=== PATIENT | male | born 1960 | race Caucasian/White ===

== ENCOUNTER → 2018-05-01 08:40 | Outpatient (CLI) | payer OTHER, MEDICAID, SELFPAY ==
[2018-05-01 09:18] LABS: Add Manual Diff / Slide Review NO; Basophils Percent Auto 0.8 % (0-2); Hematocrit 43.8 % (41-53); Hemoglobin 14.5 g/dL (13.5-17.5); Lymphocytes Percent Auto 25.1 % (25-40); Mean Corpuscular HGB Conc 33.2 % (30-36); Mean Corpuscular Hemoglobin 26.9 PG (26-34); Monocytes Percent Auto 5.3 % (3-14); Neutrophils Absolute Auto 6400 /uL (3000-5900); Neutrophils Percent Auto 66.8 % (50-75); Platelet Count 209 X10^3/uL (150-400); Red Cell Distribution Width 14.8 % (11.6-14.8); White Blood Cell Count 9.5 X10^3/uL (4.5-11.0)
[2018-05-01 09:30] LABS: Alanine Aminotransferase 28 IU/L (21-72); Albumin 4.3 g/dL (3.5-5.0); Albumin Globulin Ratio 1.3 (1.0-2.8); Alkaline Phosphatase 99 U/L (38-126); Aspartate Aminotransferase 28 IU/L (17-59); Bilirubin Total 0.6 mg/dL (0.2-1.3); Blood Urea Nitrogen 18 mg/dL (9-20); Calcium 8.9 mg/dL (8.4-10.2); Carbon Dioxide 27 mmol/L (22-32); Chloride 102 mmol/L (98-107); Cholesterol 189 mg/dL (140-199); Estimated Glomerular Filt Rate > 60.0 mL/min (>60); Globulin 3.4 g/dL (1.7-4.1); Glucose 113 mg/dL (70-100); HDL Cholesterol 40 mg/dL (40-60); HEMOLYSIS 38 (0-50); Hemoglobin A1C% w Est Avg Glu 6.4 % (4.0-6.0); Magnesium 1.9 mg/dL (1.6-2.3); Sodium 141 mmol/L (137-145); Total Protein 7.7 g/dL (6.3-8.2); Triglycerides 406 mg/dL (35-150)
== END ==
PROVIDERS: Family Provider Nurse Practitioner; PCP Nurse Practitioner Family; Visit Provider Nurse Practitioner Family
DX: E66.01 Morbid (severe) obesity due to excess calories (principal); E11.9 Type 2 diabetes mellitus without complications; I10 Essential (primary) hypertension; E11.40 Type 2 diabetes mellitus with diabetic neuropathy, unspecified
CPT/HCPCS: 36415; 80053; 80061; 82306; 83036; 83735; 85025

== ENCOUNTER → 2018-07-19 15:55 | Outpatient (CLI) | payer OTHER, MEDICAID, SELFPAY ==
--- NOTE | 2018-07-19 15:58 | DI.RAD.S_ITS ---
PROCEDURE: XR KNEE LT 3V INDICATIONS: LEFT KNEE PAIN TECHNIQUE: 3 views of the knee were acquired. COMPARISON: None. FINDINGS: Bones: No fractures or dislocations. No suspicious bony lesions. Severe narrowing of the lateral femoral tibial joint and there is tricompartmental periarticular osteophyte formation. 2 rounded lucencies involve the proximal tibial metaphysis suggestive of degenerative bone cyst. Soft tissues: Moderate joint effusion. No suspicious soft tissue calcifications. IMPRESSION: 1. Severe lateral femoral tibial joint degeneration. Dictated by: Dimitrios Biggs [facility] Interpreted: Poli Rodriguez MD on 07/19/2018 at 16:21 Approved by: Poli Rodriguez M.D. on 07/19/2018 at 16:32
== END ==
PROVIDERS: Family Provider Nurse Practitioner; PCP Nurse Practitioner Family; Visit Provider Nurse Practitioner Family
DX: M17.12 Unilateral primary osteoarthritis, left knee (principal); M25.562 Pain in left knee
CPT/HCPCS: 73562

== ENCOUNTER → 2018-10-21 14:01 | Outpatient (CLI) | payer OTHER, MEDICAID, SELFPAY | PROVIDERS: PCP Nurse Practitioner Family; Visit Provider Registered Nurse | DX: L03.90 Cellulitis, unspecified (principal) | CPT/HCPCS: 87070; 87075; 87077; 87147; 87186; 87205 ==

== ENCOUNTER → 2018-10-26 09:59 | Outpatient (CLI) | payer OTHER, MEDICAID, SELFPAY ==
[2018-10-26 11:28] LABS: Blood Urea Nitrogen 18 mg/dL (9-20); Calcium 9.4 mg/dL (8.4-10.2); Carbon Dioxide 27 mmol/L (22-32); Chloride 103 mmol/L (98-107); Cholesterol 169 mg/dL (140-199); Estimated Glomerular Filt Rate > 60.0 mL/min (>60); Glucose 125 mg/dL (70-100); HDL Cholesterol 29 mg/dL (40-60); HEMOLYSIS < 15 (0-50); LDL Cholesterol Calculated 80 mg/dL (<100); Sodium 141 mmol/L (137-145); Triglycerides 299 mg/dL (35-150)
[2018-10-26 11:45] LABS: Creatinine Urine Random 73.5 mg/dL
[2018-10-26 12:04] LABS: Vitamin D 25 Hydroxy (D3) 40.1 ng/mL (30.0-100.0)
[2018-10-26 12:18] LABS: Hemoglobin A1C% w Est Avg Glu 7.2 % (4.0-6.0)
[2018-10-26 12:40] LABS: Microalbumi Creatinin Ratio Ur 31.2 ug/mg CR (<30); Microalbumin Urine Random 2.3 mg/dL (0-1.6)
== END ==
PROVIDERS: PCP Student in an Organized Health Care Education/Training Program; Visit Provider Student in an Organized Health Care Education/Training Program
DX: E11.9 Type 2 diabetes mellitus without complications (principal); E78.1 Pure hyperglyceridemia; E55.9 Vitamin D deficiency, unspecified
CPT/HCPCS: 36415; 80048; 80061; 82043; 82306; 82570; 83036

== ENCOUNTER → 2019-02-20 08:52 | Outpatient (CLI) | payer OTHER, MEDICAID, SELFPAY ==
[2019-02-20 10:12] LABS: Hemoglobin A1C% w Est Avg Glu 6.2 % (4.0-6.0)
[2019-02-20 10:18] LABS: BUN Creatinine Ratio 28.3 (6-22); Blood Urea Nitrogen 17 mg/dL (9-20); Calcium 9.5 mg/dL (8.4-10.2); Carbon Dioxide 26 mmol/L (22-32); Chloride 100 mmol/L (98-107); Estimated Glomerular Filt Rate > 60.0 mL/min (>60); Glucose 121 mg/dL (70-100); HEMOLYSIS < 15 (0-50); Potassium 4.1 mmol/L (3.4-5.1); Sodium 138 mmol/L (137-145); Triglycerides 158 mg/dL (35-150)
[2019-02-20 10:49] LABS: Creatinine Urine Random 66.1 mg/dL
[2019-02-20 10:54] LABS: Microalbumi Creatinin Ratio Ur 63.5 ug/mg CR (<30); Microalbumin Urine Random 4.2 mg/dL (0-1.6)
== END ==
PROVIDERS: PCP Student in an Organized Health Care Education/Training Program; Visit Provider Student in an Organized Health Care Education/Training Program
DX: E11.40 Type 2 diabetes mellitus with diabetic neuropathy, unspecified (principal); E78.1 Pure hyperglyceridemia
CPT/HCPCS: 36415; 80048; 82043; 82570; 83036; 84478

== ENCOUNTER → 2019-02-21 10:52 | Outpatient (CLI) | payer OTHER, MEDICAID, SELFPAY ==
--- NOTE | 2019-02-21 10:54 | DI.RAD.S_ITS ---
PROCEDURE: XR CHEST 2V INDICATIONS: Cough TECHNIQUE: 2 views of the chest were acquired. COMPARISON: [facility], CHEST 2 VIEW, 11/17/2009, 11:42. [facility], CHEST 2 VIEW, 12/17/2009, 15:56. [facility], CHEST 2 VIEW, 12/30/2009, 11:37 previously present. . [facility], CHEST FOR PICC PLACEMENT, 07/12/2016, 10:28. [facility], CHEST 1 VIEW, 07/05/2016, 16:14. FINDINGS: Surgical changes and devices: None. Lungs and pleura: Lungs are unchanged with a chronic mild interstitial prominence. No pleural effusions or pneumothorax. Mediastinum: Mediastinal contours are normal. Heart size is normal. Bones and chest wall: No suspicious bony abnormalities. Soft tissues appear unremarkable. IMPRESSION: Chronic mild interstitial prominence, stable over time, source of new cough is not seen. No focal consolidative pneumonia is found. Dictated by: Robin Cooper M.D. on 02/21/2019 at 11:35 Approved by: Robin Cooper M.D. on 02/21/2019 at 11:36
== END ==
PROVIDERS: PCP Student in an Organized Health Care Education/Training Program; Visit Provider Registered Nurse
DX: R05 Cough (principal)
CPT/HCPCS: 71046

== ENCOUNTER → 2019-04-18 09:48 | Outpatient (CLI) | payer OTHER, MEDICAID, SELFPAY | PROVIDERS: PCP Student in an Organized Health Care Education/Training Program; Visit Provider Nurse Practitioner | DX: T14.8XXA Other injury of unspecified body region, initial encounter (principal) | CPT/HCPCS: 87070; 87077; 87205 ==

== ENCOUNTER → 2019-06-09 08:37 | Outpatient (CLI) | payer OTHER, MEDICAID, SELFPAY ==
[2019-06-09 09:40] LABS: Hemoglobin A1C% w Est Avg Glu 6.4 % (4.0-6.0)
== END ==
PROVIDERS: PCP Student in an Organized Health Care Education/Training Program; Visit Provider Student in an Organized Health Care Education/Training Program
DX: E11.40 Type 2 diabetes mellitus with diabetic neuropathy, unspecified (principal)
CPT/HCPCS: 36415; 83036

== ENCOUNTER → 2020-01-09 16:37 | Outpatient (CLI) | payer OTHER, MEDICAID, SELFPAY ==
--- NOTE | 2020-01-09 16:39 | DI.RAD.S_ITS ---
PROCEDURE: XR CHEST 2V INDICATIONS: cough TECHNIQUE: 2 views of the chest were acquired. COMPARISON: [facility], CR, XR CHEST 2V, 02/21/2019, 10:55. [facility], CR, CHEST FOR PICC PLACEMENT, 07/12/2016, 10:28. FINDINGS: Surgical changes and devices: None. Lungs and pleura: Lungs are abnormal with a mild edema pattern, chronic. No pleural effusions or pneumothorax. Mediastinum: Mediastinal contours are normal. Heart size is globally enlarged, to a mild degree. Bones and chest wall: No suspicious bony abnormalities. Soft tissues appear unremarkable. IMPRESSION: Mild CHF pattern, likely with a small degree of CHF exacerbation but no pneumonia found and no pleural effusion identified. Dictated by: Robin Cooper M.D. on 01/09/2020 at 17:15 Approved by: Robin Cooper M.D. on 01/09/2020 at 17:16
== END ==
PROVIDERS: PCP Student in an Organized Health Care Education/Training Program; Referring Provider Student in an Organized Health Care Education/Training Program; Visit Provider Student in an Organized Health Care Education/Training Program
DX: J40 Bronchitis, not specified as acute or chronic (principal); R05 Cough; I50.9 Heart failure, unspecified
CPT/HCPCS: 71046

== ENCOUNTER → 2020-01-21 09:23 | Outpatient (CLI) | payer OTHER, MEDICAID, SELFPAY ==
[2020-01-21 10:17] LABS: Hemoglobin A1C% w Est Avg Glu 7.7 % (4.0-6.0)
[2020-01-21 10:45] LABS: BUN Creatinine Ratio 28.3 (6-22); Blood Urea Nitrogen 17 mg/dL (9-20); Calcium 9.9 mg/dL (8.4-10.2); Carbon Dioxide 29 mmol/L (22-32); Chloride 100 mmol/L (98-107); Estimated Glomerular Filt Rate > 60.0 mL/min (>60); Glucose 212 mg/dL (70-100); HEMOLYSIS < 15 (0-50); Potassium 3.7 mmol/L (3.4-5.1); Sodium 138 mmol/L (137-145)
[2020-01-21 10:56] LABS: Creatinine Urine Random 18.9 mg/dL
[2020-01-21 10:58] LABS: Microalbumin Urine Random 0.7 mg/dL (0-1.6)
[2020-01-21 11:12] LABS: Prostate Specific Antigen Scrn 2.21 ng/mL (0.1-4.0)
== END ==
PROVIDERS: PCP Student in an Organized Health Care Education/Training Program; Referring Provider Student in an Organized Health Care Education/Training Program; Visit Provider Student in an Organized Health Care Education/Training Program
DX: Z12.5 Encounter for screening for malignant neoplasm of prostate (principal); E11.40 Type 2 diabetes mellitus with diabetic neuropathy, unspecified; E66.01 Morbid (severe) obesity due to excess calories; I10 Essential (primary) hypertension
CPT/HCPCS: 36415; 80048; 82043; 82570; 83036; G0103

== ENCOUNTER → 2020-05-14 11:50 | Outpatient (CLI) | payer OTHER, MEDICAID, SELFPAY ==
[2020-05-14 13:08] LABS: Hemoglobin A1C% w Est Avg Glu 7.7 % (4.0-6.0)
== END ==
PROVIDERS: PCP Student in an Organized Health Care Education/Training Program; Referring Provider Student in an Organized Health Care Education/Training Program; Visit Provider Student in an Organized Health Care Education/Training Program
DX: E11.40 Type 2 diabetes mellitus with diabetic neuropathy, unspecified (principal)
CPT/HCPCS: 36415; 83036

== ENCOUNTER → 2020-08-09 09:42 | Outpatient (CLI) | payer OTHER, MEDICAID, SELFPAY ==
[2020-08-09 10:44] LABS: BUN Creatinine Ratio 28.3 (6-22); Blood Urea Nitrogen 17 mg/dL (9-20); Estimated Glomerular Filt Rate > 60.0 mL/min (>60)
[2020-08-09 10:48] LABS: Hemoglobin A1C% w Est Avg Glu 6.6 % (4.0-6.0)
== END ==
PROVIDERS: PCP Student in an Organized Health Care Education/Training Program; Referring Provider Student in an Organized Health Care Education/Training Program; Visit Provider Student in an Organized Health Care Education/Training Program
DX: E11.29 Type 2 diabetes mellitus with other diabetic kidney complication (principal); E11.40 Type 2 diabetes mellitus with diabetic neuropathy, unspecified; R80.9 Proteinuria, unspecified
CPT/HCPCS: 36415; 82565; 83036; 84520

== ENCOUNTER → 2020-11-25 13:11 | Outpatient (CLI) | payer OTHER, MEDICAID, SELFPAY ==
[2020-11-25 14:45] LABS: Creatinine Urine Random 82.6 mg/dL
[2020-11-25 15:48] LABS: Microalbumi Creatinin Ratio Ur 1766.3 ug/mg CR (<30); Microalbumin Urine Random 145.9 mg/dL (0-1.6)
[2020-11-25 15:50] LABS: Hemoglobin A1C% w Est Avg Glu 6.6 % (4.0-6.0)
[2020-11-25 16:01] LABS: BUN Creatinine Ratio 28.8 (6-22); Blood Urea Nitrogen 19 mg/dL (9-20); Calcium 9.8 mg/dL (8.4-10.2); Carbon Dioxide 30 mmol/L (22-32); Chloride 102 mmol/L (98-107); Estimated Glomerular Filt Rate > 60.0 mL/min (>60); Glucose 104 mg/dL (70-100); HEMOLYSIS 17 (0-50); Potassium 3.9 mmol/L (3.4-5.1); Sodium 140 mmol/L (137-145)
[2020-11-25 16:30] LABS: Prostate Specific Antigen Scrn 2.95 ng/mL (0.1-4.0)
== END ==
PROVIDERS: PCP Student in an Organized Health Care Education/Training Program; Referring Provider Student in an Organized Health Care Education/Training Program; Visit Provider Student in an Organized Health Care Education/Training Program
DX: E11.29 Type 2 diabetes mellitus with other diabetic kidney complication (principal); E11.40 Type 2 diabetes mellitus with diabetic neuropathy, unspecified; I10 Essential (primary) hypertension; R80.9 Proteinuria, unspecified; Z12.5 Encounter for screening for malignant neoplasm of prostate
CPT/HCPCS: 36415; 80048; 82043; 82570; 83036; G0103

== ENCOUNTER → 2021-02-10 15:06 | Outpatient (CLI) | payer OTHER, MEDICAID, SELFPAY ==
--- NOTE | 2021-02-10 15:08 | DI.RAD.S_ITS ---
PROCEDURE: XR KNEE LT 3V INDICATIONS: Re-assess ongoing knee pain TECHNIQUE: 3 views of the knee were acquired. COMPARISON: , CR, XR KNEE LT 3V, 07/19/2018, 15:34. FINDINGS: Bones: No fractures or dislocations but again noted is severe lateral compartment degenerative osteoarthritic joint space narrowing with [id number] articulation, and with subchondral cyst formation above and below the joint space better seen inferiorly. Lateral facet osteoarthritis is noted at the patellofemoral joint, moderate in severity.. No suspicious bony lesions. Soft tissues: No joint effusion. No suspicious soft tissue calcifications. IMPRESSION: [id number] severe lateral compartment knee joint osteoarthritis, moderate lateral facet patellofemoral joint osteoarthritic change also. No acute trauma. Subchondral cyst formation is noted, previously present. Dictated by: Robin Cooper M.D. on 02/10/2021 at 16:21 Approved by: Robin Cooper M.D. on 02/10/2021 at 16:23
== END ==
PROVIDERS: PCP Student in an Organized Health Care Education/Training Program; Referring Provider Student in an Organized Health Care Education/Training Program; Visit Provider Student in an Organized Health Care Education/Training Program
DX: M17.12 Unilateral primary osteoarthritis, left knee (principal); G89.29 Other chronic pain
CPT/HCPCS: 73562

== ENCOUNTER → 2021-06-07 16:26 | Outpatient (CLI) | payer OTHER, MEDICAID, SELFPAY ==
[2021-06-07 18:29] LABS: BUN Creatinine Ratio 33.8 (6-22); Blood Urea Nitrogen 22 mg/dL (9-20); Estimated Glomerular Filt Rate > 60.0 mL/min (>60)
[2021-06-07 18:32] LABS: Hemoglobin A1C% w Est Avg Glu 6.2 % (4.0-6.0)
[2021-06-07 19:08] LABS: Creatinine Urine Random 129.8 mg/dL
[2021-06-07 19:10] LABS: Microalbumi Creatinin Ratio Ur 28.5 ug/mg CR (<30); Microalbumin Urine Random 3.7 mg/dL (0-1.6)
== END ==
PROVIDERS: PCP Student in an Organized Health Care Education/Training Program; Referring Provider Student in an Organized Health Care Education/Training Program; Visit Provider Student in an Organized Health Care Education/Training Program
DX: E11.29 Type 2 diabetes mellitus with other diabetic kidney complication (principal); E11.40 Type 2 diabetes mellitus with diabetic neuropathy, unspecified; R80.9 Proteinuria, unspecified
CPT/HCPCS: 36415; 82043; 82565; 82570; 83036; 84520

== ENCOUNTER → 2021-07-13 13:38 | Outpatient (CLI) | payer OTHER, MEDICAID, SELFPAY ==
[2021-07-13 15:09] LABS: BUN Creatinine Ratio 39.8 (6-22); Blood Urea Nitrogen 33 mg/dL (9-20); Carbon Dioxide 25 mmol/L (22-32); Chloride 105 mmol/L (98-107); Estimated Glomerular Filt Rate > 60.0 mL/min (>60); Glucose 107 mg/dL (80-110); HEMOLYSIS < 15 (0-50); Potassium 4.6 mmol/L (3.4-5.1); Sodium 141 mmol/L (137-145)
[2021-07-13 18:28] LABS: Hemoglobin A1C% w Est Avg Glu 6.2 % (4.0-6.0)
== END ==
PROVIDERS: PCP Student in an Organized Health Care Education/Training Program; Referring Provider Student in an Organized Health Care Education/Training Program; Visit Provider Student in an Organized Health Care Education/Training Program
DX: I10 Essential (primary) hypertension (principal); Z79.899 Other long term (current) drug therapy; E11.40 Type 2 diabetes mellitus with diabetic neuropathy, unspecified
CPT/HCPCS: 36415; 80048; 83036

== ENCOUNTER → 2021-07-20 16:18 | Outpatient (CLI) | payer OTHER, MEDICAID, SELFPAY ==
[2021-07-20 18:24] LABS: Hemoglobin A1C% w Est Avg Glu 6.3 % (4.0-6.0)
[2021-07-20 18:36] LABS: Blood Urea Nitrogen 32 mg/dL (9-20)
[2021-07-20 18:41] LABS: BUN Creatinine Ratio 31.4 (6-22); Estimated Glomerular Filt Rate > 60.0 mL/min (>60)
[2021-07-20 19:05] LABS: Rubella Antibody IgG > 350.0 IU/mL (>15)
[2021-07-21 09:34] LABS: Hepatitis B Surf Ab Qualitativ Non Reactive (.); Mumps Virus IgG Antibody 83.2 AU/mL (Immune >10.9); Rubeola Measles IgG 75.9 AU/mL (Immune >16.4); Varicella IgG Antibody >4000 index (Immune >165)
== END ==
PROVIDERS: PCP Student in an Organized Health Care Education/Training Program; Referring Provider Student in an Organized Health Care Education/Training Program; Visit Provider Student in an Organized Health Care Education/Training Program
DX: E11.29 Type 2 diabetes mellitus with other diabetic kidney complication (principal); R80.9 Proteinuria, unspecified; E11.40 Type 2 diabetes mellitus with diabetic neuropathy, unspecified; Z02.1 Encounter for pre-employment examination
CPT/HCPCS: 82565; 83036; 84520; 86706; 86735; 86762; 86765; 86787

== ENCOUNTER → 2021-08-22 14:55 | Outpatient (CLI) | payer OTHER, MEDICAID, SELFPAY ==
[2021-08-22 16:16] LABS: BUN Creatinine Ratio 35.5 (6-22); Blood Urea Nitrogen 27 mg/dL (9-20); Estimated Glomerular Filt Rate > 60.0 mL/min (>60)
== END ==
PROVIDERS: PCP Student in an Organized Health Care Education/Training Program; Referring Provider Student in an Organized Health Care Education/Training Program; Visit Provider Student in an Organized Health Care Education/Training Program
DX: E11.40 Type 2 diabetes mellitus with diabetic neuropathy, unspecified (principal); I10 Essential (primary) hypertension
CPT/HCPCS: 36415; 82565; 83036; 84520

== ENCOUNTER → 2021-08-24 15:04 | Outpatient (CLI) | payer OTHER, MEDICAID, SELFPAY ==
--- NOTE | 2021-08-24 15:05 | DI.CT.S_ITS ---
PROCEDURE: CT ANGIO ABDOMEN INDICATIONS: Resistant hypertension TECHNIQUE: After the administration of intravenous contrast, 2.5 mm thick sections acquired from the diaphragm to the symphysis. 10 mm maximum-intensity projection (MIP) reformats were then acquired. For radiation dose reduction, the following was used: automated exposure control. COMPARISON: None. FINDINGS: Image quality: Study is limited by bolus timing and body habitus. Aorta: Appropriate in size and contour. No evidence of aortic aneurysm or dissection. Moderate atherosclerotic vascular calcification noted. Both renal arteries are widely patent Mesenteric arteries: Celiac trunk, superior and inferior mesenteric arteries appear patent. Right pelvic arteries: Unremarkable. Left pelvic arteries: Unremarkable Extravascular soft tissues: Lung bases are clear. Heart size is normal. Liver is normal in size and enhancement. Gallbladder not visualized, possibly resected . Biliary system is non dilated. Pancreas enhances normally. Spleen is normal in size and enhancement. No adrenal nodules. Kidneys are normal in size and enhancement, without hydronephrosis. Bilateral renal cysts measure up to 6.5 x 5.2 cm on the right and 7.3 x 5.3 cm on the left. There are 2 nodules associated with the left adrenal gland containing calcification. Largest nodule measures 2.3 x 1.8 cm Non opacified bowel loops are normal in wall thickness and caliber. No free fluid or air. No retroperitoneal or mesenteric adenopathy. No ventral hernias. No suspicious bony lesions. No vertebral body compression fractures. IMPRESSION: 1. Atherosclerotic aorta without evidence of aneurysm or dissection. No evidence of renal artery stenosis. 2. Nodular left adrenal gland contains calcification. Consider dedicated follow-up adrenal protocol CT or MR. 3. Bilateral renal cysts without hydronephrosis. Approved by: Ronnie Drew M.D. on 08/24/2021 at 17:05
== END ==
PROVIDERS: PCP Student in an Organized Health Care Education/Training Program; Referring Provider Student in an Organized Health Care Education/Training Program; Visit Provider Student in an Organized Health Care Education/Training Program
DX: N20.0 Calculus of kidney (principal); I10 Essential (primary) hypertension
CPT/HCPCS: 74175

== ENCOUNTER → 2022-03-14 15:46 | Outpatient (CLI) | payer OTHER, MEDICAID, SELFPAY ==
[2022-03-14 16:34] LABS: Hemoglobin A1C% w Est Avg Glu 7.1 % (4.0-6.0)
[2022-03-14 17:02] LABS: BUN Creatinine Ratio 27.9 (6-22); Blood Urea Nitrogen 19 mg/dL (9-20); Calcium 9.3 mg/dL (8.4-10.2); Carbon Dioxide 28 mmol/L (22-32); Chloride 104 mmol/L (98-107); Cholesterol 148 mg/dL (140-199); Estimated Glomerular Filt Rate > 60 mL/min (>60); Glucose 106 mg/dL (80-110); HDL Cholesterol 40 mg/dL (40-60); HEMOLYSIS < 15 (0-50); LDL Cholesterol Calculated 64 mg/dL (<100); Potassium 3.8 mmol/L (3.4-5.1); Sodium 140 mmol/L (137-145); Triglycerides 219 mg/dL (35-150)
[2022-03-14 17:33] LABS: Prostate Specific Antigen Scrn 3.48 ng/mL (0.1-4.0)
[2022-03-14 19:03] LABS: Creatinine Urine Random 64.7 mg/dL; Microalbumi Creatinin Ratio Ur 200.9 ug/mg CR (<30)
== END ==
PROVIDERS: PCP Student in an Organized Health Care Education/Training Program; Referring Provider Student in an Organized Health Care Education/Training Program; Visit Provider Student in an Organized Health Care Education/Training Program
DX: E11.29 Type 2 diabetes mellitus with other diabetic kidney complication (principal); E11.40 Type 2 diabetes mellitus with diabetic neuropathy, unspecified; E78.1 Pure hyperglyceridemia; I10 Essential (primary) hypertension; R80.9 Proteinuria, unspecified; Z12.5 Encounter for screening for malignant neoplasm of prostate
CPT/HCPCS: 36415; 80048; 80061; 82043; 82570; 83036; G0103

== ENCOUNTER → 2022-09-11 16:12 | Outpatient (CLI) | payer OTHER, MEDICAID, SELFPAY ==
[2022-09-11 17:20] LABS: Hemoglobin A1C% w Est Avg Glu 7.1 % (4.0-6.0)
[2022-09-11 17:23] LABS: BUN Creatinine Ratio 32.4 (6-22); Blood Urea Nitrogen 23 mg/dL (9-20); Estimated Glomerular Filt Rate > 60 mL/min (>60)
[2022-09-11 17:45] LABS: Creatinine Urine Random 86.2 mg/dL
[2022-09-11 17:48] LABS: Microalbumi Creatinin Ratio Ur 104.4 ug/mg CR (<30)
== END ==
PROVIDERS: PCP Student in an Organized Health Care Education/Training Program; Referring Provider Student in an Organized Health Care Education/Training Program; Visit Provider Student in an Organized Health Care Education/Training Program
DX: E11.29 Type 2 diabetes mellitus with other diabetic kidney complication (principal); E11.40 Type 2 diabetes mellitus with diabetic neuropathy, unspecified; I10 Essential (primary) hypertension; R80.9 Proteinuria, unspecified
CPT/HCPCS: 36415; 82043; 82565; 82570; 83036; 84520

== ENCOUNTER → 2022-10-11 08:43 | Outpatient (CLI) | payer OTHER, MEDICAID, SELFPAY ==
--- NOTE | 2022-10-11 09:07 | DI.RAD.S_ITS ---
PROCEDURE: XR CHEST 2V INDICATIONS: Cough TECHNIQUE: 2 views of the chest were acquired. COMPARISON: [facility], CR, XR CHEST 2V, 02/21/2019, 10:55. [facility], CR, XR CHEST 2V, 01/09/2020, 16:36. FINDINGS: Surgical changes and devices: None. Lungs and pleura: The lungs are hyperexpanded, with flattening of the hemidiaphragms seen. Generalized interstitial prominence can be seen. No pleural effusions or pneumothorax. Mediastinum: Mediastinal contours are normal. Heart size is normal. Bones and chest wall: No suspicious bony abnormalities. Age-appropriate bony degenerative changes are seen. Soft tissues appear unremarkable. IMPRESSION: Generalized interstitial prominence is seen, which is similar to the prior study. Please consider mild pulmonary edema, although the heart size is no appears normal. Differential diagnosis includes atypical infiltrate or baseline parenchymal coarsening. Dictated by: Devendra Agrawal M.D. on 10/11/2022 at 8:49 Approved by: Devendra Agrawal M.D. on 10/11/2022 at 8:50
[2022-10-11 09:32] LABS: Influenza A - CEPHEID Flu A NEGATIVE (NEGATIVE); Influenza B - CEPHEID Flu B NEGATIVE (NEGATIVE); Respiratory Syncytial Virus Negative (Negative)
[2022-10-11 09:47] LABS: COVID-19 CEPHEID 4-PLEX PCR Negative (Negative)
== END ==
PROVIDERS: PCP Student in an Organized Health Care Education/Training Program; Referring Provider Nurse Practitioner Family; Visit Provider Nurse Practitioner Family
DX: R05.9 Cough, unspecified (principal)
CPT/HCPCS: 0241U; 71046

== ENCOUNTER → 2023-03-13 16:06 | Outpatient (CLI) | payer OTHER, MEDICAID, SELFPAY ==
[2023-03-13 17:45] LABS: Alanine Aminotransferase 36 IU/L (<50); Bilirubin Total 0.5 mg/dL (0.2-1.3); Estimated Glomerular Filt Rate > 60 mL/min (>60)
[2023-03-13 18:00] LABS: Creatinine Urine Random 104.9 mg/dL
[2023-03-13 18:05] LABS: Microalbumi Creatinin Ratio Ur 106.7 ug/mg CR (<30); Microalbumin Urine Random 11.2 mg/dL (0-1.6)
[2023-03-13 21:01] LABS: Albumin 4.6 g/dL (3.5-5.0); Albumin Globulin Ratio 1.5 (1.0-2.8); Alkaline Phosphatase 96 U/L (38-126); Aspartate Aminotransferase 43 IU/L (17-59); BUN Creatinine Ratio 32.9 (6-22); Blood Urea Nitrogen 26 mg/dL (9-20); Calcium 9.6 mg/dL (8.4-10.2); Carbon Dioxide 22 mmol/L (22-32); Chloride 105 mmol/L (98-107); Glucose 135 mg/dL (80-110); Potassium 4.4 mmol/L (3.4-5.1); Sodium 139 mmol/L (137-145); Total Protein 7.6 g/dL (6.3-8.2); Triglycerides 396 mg/dL (35-150)
[2023-03-13 21:39] LABS: HEMOLYSIS 61 (0-50)
[2023-03-15 00:19] LABS: Labcorp Hemoglobin (Hb) A1c 7.7 % (4.8-5.6)
== END ==
PROVIDERS: PCP Student in an Organized Health Care Education/Training Program; Referring Provider Student in an Organized Health Care Education/Training Program; Visit Provider Student in an Organized Health Care Education/Training Program
DX: I10 Essential (primary) hypertension (principal); E11.29 Type 2 diabetes mellitus with other diabetic kidney complication; R80.9 Proteinuria, unspecified; E78.1 Pure hyperglyceridemia; E11.40 Type 2 diabetes mellitus with diabetic neuropathy, unspecified
CPT/HCPCS: 36415; 80053; 82043; 82570; 83036; 84478

== ENCOUNTER → 2023-03-21 15:07 | Outpatient (CLI) | payer OTHER, MEDICAID, SELFPAY ==
--- NOTE | 2023-03-21 | DI.RAD.S_ITS ---
PROCEDURE: XR LUMBAR SPINE 2-3V INDICATIONS: Segmental and somatic dysfunction of lumbar region, pain TECHNIQUE: 3 views of the lumbar spine were acquired. COMPARISON: None. FINDINGS: Bones: 5 [id number] vertebrae are present. There is loss of normal lumbar lordosis. 4 mm of anterolisthesis of L4 on L5. Multilevel disc space narrowing and endplate osteophyte formation, as well as facet hypertrophy, predominantly within the mid and lower lumbar spine. No vertebral body compression fractures. No suspicious bony lesions. Soft tissues: Overlying bowel gas pattern is normal. No suspicious soft tissue calcifications. IMPRESSION: Multilevel degenerative disc and facet disease. No acute fracture. No osseous lesion. If symptoms and/or clinical suspicion for pathology persist, further assessment with repeat, or advanced imaging (e.g., CT, MRI, or bone scan) may be helpful for further assessment. Dictated by: Jose Garcia M.D. on 03/21/2023 at 16:33 Transcribed by: JONATHAN on 03/21/2023 at 16:34 Approved by: Jose Garcai M.D. on 03/21/2023 at 16:50
== END ==
PROVIDERS: PCP Student in an Organized Health Care Education/Training Program; Referring Provider Chiropractor Independent Medical Examiner; Visit Provider Chiropractor Independent Medical Examiner
DX: M51.36 Other intervertebral disc degeneration, lumbar region (principal); M47.896 Other spondylosis, lumbar region; M99.03 Segmental and somatic dysfunction of lumbar region; M54.59 Other low back pain
CPT/HCPCS: 72100

== ENCOUNTER → 2023-06-12 08:47 | Outpatient (CLI) | payer OTHER, MEDICAID, SELFPAY ==
[2023-06-14 05:52] LABS: x Labcorp Estim. Avg Glu (eAG) 154 mg/dL (.)
== END ==
PROVIDERS: PCP Student in an Organized Health Care Education/Training Program; Referring Provider Student in an Organized Health Care Education/Training Program; Visit Provider Student in an Organized Health Care Education/Training Program
DX: E11.40 Type 2 diabetes mellitus with diabetic neuropathy, unspecified (principal)
CPT/HCPCS: 36415; 83036

== ENCOUNTER → 2023-10-13 08:44 | Outpatient (CLI) | payer BC, OTHER, MEDICAID, SELFPAY ==
[2023-10-13 10:28] LABS: Cholesterol 159 mg/dL (140-199); HDL Cholesterol 34 mg/dL (40-60); LDL Cholesterol Calculated 90 mg/dL (<100); Triglycerides 177 mg/dL (35-150)
[2023-10-15 16:42] LABS: HIV 1 & 2 Ab/Ag 4th Gen Combo NEGATIVE (NEGATIVE); Hep C Virus Ab w/Reflex Quant NEGATIVE s/c (NEGATIVE)
== END ==
PROVIDERS: PCP Family Medicine; Referring Provider Family Medicine; Visit Provider Family Medicine
DX: Z11.4 Encounter for screening for human immunodeficiency virus [HIV] (principal); Z11.59 Encounter for screening for other viral diseases; E78.1 Pure hyperglyceridemia
CPT/HCPCS: 36415; 80061; 86803; 87389

== ENCOUNTER → 2023-12-14 07:46 | Outpatient (CLI) | payer BC, SELFPAY ==
[2023-12-14 09:27] LABS: Hemoglobin A1C% w Est Avg Glu 7.1 % (4.0-6.0)
== END ==
PROVIDERS: PCP Family Medicine; Referring Provider Family Medicine; Visit Provider Family Medicine
DX: E11.40 Type 2 diabetes mellitus with diabetic neuropathy, unspecified (principal)
CPT/HCPCS: 36415; 83036

== ENCOUNTER 2024-02-10 15:08 | Emergency (ER) | payer OTHER, SELFPAY ==
[2024-02-10 15:13] VITALS: BP 144/76; PULSE 89; RESP 16; TEMP 36.6; O2SAT 97; BMI 50.2
--- NOTE | 2024-02-10 15:29 | ED_ITS ---
HPI - Extremity Problem General Chief complaint: Extremity Problem,Nontraumatic Stated complaint: toe is purple and weeping Time Seen by Provider: 02/10/24 15:28 Source: patient Mode of arrival: Ambulatory History of Present Illness HPI Narrative: Patient 64-year-old male history of diabetes, diabetic neuropathy, hypertension, hyperlipidemia, obesity, presenting today with left middle toe redness. He reports that that toe started looking a little abnormal last week. He has a routine follow-up appointment with his technical sales representative but unfortunately they moved and did not tell him. He now has an appointment with them in a couple of days. Today he started noticing that the redness and weeping got worse. It is non painful due to the neuropathy. He does not have any fever or streaking. But the middle toe his significantly red and swollen. Related Data Home Medications Medication Instructions Recorded Confirmed ResMed AirSense 10 02/02/22 12/19/23 pen needle, diabetic 31 gauge x #1,200 ea 11/13/23 12/19/2303/27 (BD Ultra-Fine Short Pen Needle) Previous Rx's Medication Instructions Recorded aspirin 81 mg tablet,delayed 81 mg PO QDAY #90 tabs 04/30/18 release blood sugar diagnostic (Pharmacist #100 ea 09/17/18 Choice Glucose Test Strips) lancets 30 gauge (Stilwell 1 #100 ea 12/18/18 Lancets) albuterol sulfate 90 mcg/actuation 2 puff inhalation Q4-6H PRN 02/21/19 aerosol inhaler shortness of breath or wheezing #6.7 grams inhalational spacing device #1 ea 10/11/22 (Aerochamber MV spacer) lisinopril 40 mg tablet 40 mg PO DAILY #90 tabs 03/12/23 amlodipine 10 mg tablet 10 mg PO DAILY #90 tabs 08/23/23 pravastatin 80 mg tablet See Rx Instructions .Route 09/13/23 .COMPLEX #90 tabs fenofibrate 54 mg tablet 54 mg PO DAILY #90 tabs 10/18/23 metformin 1,000 mg tablet 1,000 mg PO BID #180 tabs 11/01/23 empagliflozin 25 mg tablet 25 mg PO DAILY #30 tabs 11/14/23 sildenafil (pulm.hypertension) 20 20 mg PO DAILY PRN sexual activity 11/22/23 mg tablet #30 tabs doxazosin 4 mg tablet 4 mg PO BEDTIME #90 tabs 01/03/24 semaglutide 1 mg/dose (4 mg/3 mL) 1 mg (0.75 mL) SUBCUT QWEEK #3 mL 01/16/24 subcutaneous pen injector (Ozempic) hydrochlorothiazide 25 mg tablet 25 mg PO DAILY #30 tabs 01/21/24 furosemide 40 mg tablet 40 mg PO DAILY #90 tabs 01/24/24 potassium chloride 20 mEq 20 meq PO DAILY #90 tabs 02/04/24 tablet,extended release(part/cryst) cefdinir 300 mg capsule 300 mg PO Q12H #20 caps 02/10/24 Allergies Allergy/AdvReac Type Severity Reaction Status Date / Time No Known Drug Allergies Allergy Verified 01/16/24 15:45 Patient History Medical History Obstructive sleep apnea (~03/11/15) Abscess of skin Non-Hodgkin lymphoma Abscess Carbuncle and furuncle of trunk Current smoker Morbid obesity with body mass index (BMI) greater than or equal to 50 Other social stressor Alcohol use disorder, mild, abuse Hyperlipidemia Hypertension Septicemia (2015) Type 2 diabetes mellitus with diabetic neuropathy, without long-term current use of insulin (12/19/16) Essential hypertension Surgical History Hx of carpal tunnel repair Hx of knee surgery History of vasectomy (07/2005) Social History marital status: details: dewey Lemos, lives in Telephone household members: spouse lives independently: Yes caregiver/support person: No housing: house occupational status: employed current occupational exposures/hazards: Yes (works construction) Smoking Status: Former smoker Tobacco: How many years used: 40 quit status: not considering quitting alcohol intake: former substance use type: does not use Smoking Status: Former smoker alcohol intake frequency: holidays/special occasions only Substance Use Type: does not use Exam Initial Vital Signs Initial Vital Signs: Vital Signs Temperature 97.8 F 02/10/24 15:13 Pulse Rate 89 02/10/24 15:13 Respiratory Rate 16 02/10/24 15:13 Blood Pressure 144/76 H 02/10/24 15:13 Pulse Oximetry 97 02/10/24 15:13 Oxygen Delivery Method Room Air 02/10/24 15:13 GENERAL: [Well-appearing, well-nourished] and in [no acute] distress. HEENT: Head atraumatic,EOMI, pupils reactive, face symmetric, [moist] mucous membranes [EARS:] [Tympanic membranes visualized, no erythema or bulging, no hemotympanum] [PHARYNX:] [No erythema, no tonsillar exudate, no cervical lymphadenopathy] CARDIOVASCULAR: Regular rate and rhythm without murmurs, rubs or gallops. RESPIRATORY: Breath sounds equal bilaterally, no wheezes rales or rhonchi. ABDOMEN: Soft, nontender. Normoactive bowel sounds all 4 quadrants. No guarding or rebound. EXTREMITIES: Normal range of motion, no clubbing or edema. Neurovascularly intact NEUROLOGICAL: Alert and oriented x4. SKIN: Left middle toe erythematous swollen no gross drainage reimage 4th toe slightly erythematous as Course Orders Ordered: ED Orders 02/10/24 15:39 CBC Auto Diff [Complete Blood Count AUTO DIFF] Stat CMP [Comprehensive Metabolic Panel] Stat CRP [C-Reactive Protein Quant] Stat ESR [Erythrocyte Sedimentation Rate] Stat 02/10/24 15:42 XR toe LT min 2V Stat Discontinued Medications Hydrocodone Bitart/Acetaminophen (Hydrocodone/Acet 5/325 Prepack) 1 bottle MISC DIRECTED ONE Stop: 02/10/24 16:57 Last Admin: 02/10/24 16:58 Dose: Not Given Documented By: NIMESH Cefdinir (Cefdinir 300 Mg Capsule) 300 mg PO NOW ONE Stop: 02/10/24 17:07 Last Admin: 02/10/24 17:19 Dose: 300 mg Documented By: NIMESH Vital Signs Vital signs: Vital Signs - 8 hr 02/10/24 15:13 02/10/24 15:43 02/10/24 17:26 Temperature 97.8 F 98.6 F Pulse Rate 89 102 H Pulse Rate [Bilateral Dorsalis Pedis] 98 H Respiratory Rate 16 20 Blood Pressure 144/76 H 126/86 Pulse Oximetry 97 100 Oxygen Delivery Method Room Air Room Air MDM - Extremity (Nontraumatic) Lab Data 02/10/24 15:39 02/10/24 15:39 Labs: Lab Results 02/10/24 Range/Units 15:39 WBC 9.6 (4.5-11.0) X10^3/uL RBC 5.65 (4.5-5.9) X10^6/uL Hgb 14.8 (13.5-17.5) g/dL Hct 44.5 (41-53) % MCV 78.6 L (80-100) fL MCH 26.1 (26-34) PG MCHC 33.2 (30-36) % RDW 14.0 (11.6-14.8) % Plt Count 228 (150-400) X10^3/uL Neut % (Auto) 72.0 (50-75) % Lymph % (Auto) 18.6 L (25-40) % Turner % (Auto) 6.8 (3-14) % Eos % (Auto) 2.1 (2-4) % Baso % (Auto) 0.5 (0-2) % Neut # (Auto) 6900 (9455-0447) /uL Lymph # (Auto) 1800 (9027-5666) /uL Turner # (Auto) 600 (0-900) /uL Eos # (Auto) 200 (0-450) /uL Baso # (Auto) 0 (0-100) /uL ESR 5 (0-15) MM/HR Sodium 138 (137-145) mmol/L Potassium 3.5 (3.4-5.1) mmol/L Chloride 103 (98-107) mmol/L Carbon Dioxide 27 (22-32) mmol/L BUN 34 H (9-20) mg/dL Creatinine 0.77 (0.66-1.25) mg/dL Estimated GFR > 60 (>60) mL/min BUN/Creatinine Ratio 44.2 H (6-22) Glucose 122 H (80-110) mg/dL Calcium 9.4 (8.4-10.2) mg/dL Total Bilirubin 0.4 (0.2-1.3) mg/dL AST 29 (17-59) IU/L ALT 30 (<50) IU/L Alkaline Phosphatase 79 (38-126) U/L C-Reactive Protein 0.7 (<1.0) mg/dL Total Protein 7.3 (6.3-8.2) g/dL Albumin 4.2 (3.5-5.0) g/dL Globulin 3.1 (1.7-4.1) g/dL Albumin/Globulin Ratio 1.4 (1.0-2.8) Imaging Data Extremity x-ray #1: Radiologist's Impression: PROCEDURE: XR TOE LT MIN 2V INDICATIONS: middle toe infection TECHNIQUE: 3 views of the 3rd toe(s) acquired. COMPARISON: None. FINDINGS: Bones: No fractures or dislocations. No suspicious bony lesions. Soft tissues: No suspicious soft tissue densities. IMPRESSION: No acute bony abnormality. Dictated by: Cameron Canada M.D. on 02/10/2024 at 16:17 MDM Narrative Medical decision making narrative: Patient 64-year-old male history of diabetes diabetic neuropathy presenting today with left toe pain swelling and infection. Overall appears well nontoxic no sirs criteria present. Blood work has been reviewed WBC 9.6, creatinine 0.7, glucose 122 X-ray does not show any evidence of osteomyelitis or gas Unlikely to be necrotizing fasciitis Patient has appointment with Podiatry this week. We will get him started on antibiotics Discharge Plan Departure Patient Disposition: Home Clinical Impression: Cellulitis Instructions: DI for Cellulitis -- Adult Activity Restrictions/Additional Instructions: *You have been diagnosed with cellulitis left toe *What to do: At this time will start you on antibiotics you do need to see a technical sales representative as scheduled this week. Please continue to monitor and check feet every *Continue to take medications as directed Cefdinir 300 mg twice a day for 10 days *Follow up with your primary care provider in 2-3 days or call [phone] *Return to ER if you should have increasing redness swelling drainage pain confusion [or] any new, worsening or concerning symptoms Prescriptions: New cefdinir 300 mg capsule 300 mg PO Q12H Qty: 20 0RF No Action Ozempic 1 mg/dose (4 mg/3 mL) pen injector 1 mg SUBCUT QWEEK Qty: 3 6RF (DME) Aerochamber MV Spacer See Rx Instructions .ROUTE .MEDSUPPLY Qty: 1 0RF Rx Instructions: As directed (DME) pen needle, diabetic [BD Ultra-Fine Short Pen Needle] 31 gauge x 5/16 needle See Rx Instructions .ROUTE DAILY Qty: 1200 Rx Instructions: As directed Jardiance 25 mg tablet 25 mg PO DAILY Qty: 30 2RF (DME) blood sugar diagnostic [Pharmacist Choice] strip See Dose Instructions .ROUTE .MEDSUPPLY Qty: 100 1RF Dose Instruction: As directed Rx Instructions: TEST BLOOD SUGAR ONCE A DAY (DME) lancets [Stilwell 1 Lancets] 30 gauge misc See Dose Instructions .ROUTE .MEDSUPPLY Qty: 100 1RF Dose Instruction: As directed Rx Instructions: CHECK BLOOD SUGAR ONCE A DAY lisinopril 40 mg tablet 40 mg PO DAILY Qty: 90 3RF amlodipine 10 mg tablet 10 mg PO DAILY Qty: 90 3RF pravastatin 80 mg tablet See Rx Instructions .ROUTE .COMPLEX Qty: 90 3RF Dose Instruction: TAKE ONE TABLET BY MOUTH ONE TIME DAILY AT BEDTIME Rx Instructions: TAKE ONE TABLET BY MOUTH ONE TIME DAILY AT BEDTIME fenofibrate 54 mg tablet 54 mg PO DAILY Qty: 90 3RF metformin 1,000 mg tablet 1,000 mg PO BID Qty: 180 1RF sildenafil (pulm.hypertension) 20 mg tablet 20 mg PO DAILY PRN (Reason: sexual activity) Qty: 30 11RF Rx Instructions: 1-5 tablets each time doxazosin 4 mg tablet 4 mg PO BEDTIME Qty: 90 1RF hydrochlorothiazide 25 mg tablet 25 mg PO DAILY Qty: 30 0RF furosemide 40 mg tablet 40 mg PO DAILY Qty: 90 1RF potassium chloride 20 mEq tablet,ER particles/crystals 20 meq PO DAILY Qty: 90 1RF aspirin 81 mg tablet,delayed release (DR/EC) 81 mg PO QDAY Qty: 90 1RF albuterol sulfate 90 mcg/actuation HFA aerosol inhaler 2 puff INHALATION Q4-6H PRN (Reason: shortness of breath or wheezing) Qty: 6.7 2RF (DME) ResMed AirSense 10 0 .Route .MEDSUPPLY Patient Comments: CPAP Min: 12 Max: 19 DME: [employer] Referrals: Marquis Villarreal MD [Primary Care Provider] - Stand Alone Forms: Patient Portal/API
--- NOTE | 2024-02-10 15:42 | DI.RAD.S_ITS ---
PROCEDURE: XR TOE LT MIN 2V INDICATIONS: middle toe infection TECHNIQUE: 3 views of the 3rd toe(s) acquired. COMPARISON: None. FINDINGS: Bones: No fractures or dislocations. No suspicious bony lesions. Soft tissues: No suspicious soft tissue densities. IMPRESSION: No acute bony abnormality. Dictated by: Cameron Canada M.D. on 02/10/2024 at 16:17 Approved by: Cameron Canada M.D. on 02/10/2024 at 16:18
[2024-02-10 15:43] VITALS: PULSE 98
[2024-02-10 15:59] LABS: Add Manual Diff / Slide Review NO; Basophils Absolute Auto 0 /uL (0-100); Basophils Percent Auto 0.5 % (0-2); Eosinophils Absolute Auto 200 /uL (0-450); Eosinophils Percent Auto 2.1 % (2-4); Hematocrit 44.5 % (41-53); Hemoglobin 14.8 g/dL (13.5-17.5); Lymphocytes Absolute Auto 1800 /uL (1100-4500); Lymphocytes Percent Auto 18.6 % (25-40); Mean Corpuscular HGB Conc 33.2 % (30-36); Mean Corpuscular Hemoglobin 26.1 PG (26-34); Mean Corpuscular Volume 78.6 fL (80-100); Monocytes Absolute Auto 600 /uL (0-900); Monocytes Percent Auto 6.8 % (3-14); Neutrophils Absolute Auto 6900 /uL (1500-7000); Platelet Count 228 X10^3/uL (150-400); Red Blood Cell Count 5.65 X10^6/uL (4.5-5.9); White Blood Cell Count 9.6 X10^3/uL (4.5-11.0)
[2024-02-10 16:07] LABS: Alanine Aminotransferase 30 IU/L (<50); Albumin 4.2 g/dL (3.5-5.0); Albumin Globulin Ratio 1.4 (1.0-2.8); Alkaline Phosphatase 79 U/L (38-126); Aspartate Aminotransferase 29 IU/L (17-59); BUN Creatinine Ratio 44.2 (6-22); Bilirubin Total 0.4 mg/dL (0.2-1.3); Blood Urea Nitrogen 34 mg/dL (9-20); C-Reactive Protein Quant 0.7 mg/dL (<1.0); Calcium 9.4 mg/dL (8.4-10.2); Carbon Dioxide 27 mmol/L (22-32); Chloride 103 mmol/L (98-107); Estimated Glomerular Filt Rate > 60 mL/min (>60); Globulin 3.1 g/dL (1.7-4.1); Glucose 122 mg/dL (80-110); HEMOLYSIS 16 (0-50); Potassium 3.5 mmol/L (3.4-5.1); Sodium 138 mmol/L (137-145); Total Protein 7.3 g/dL (6.3-8.2)
[2024-02-10 16:22] LABS: Erythrocyte Sedimentation Rate 5 MM/HR (0-15)
[2024-02-10] MEDS: CEFDINIR 300 MG CAPSULE PO (17:19)
[2024-02-10 17:26] VITALS: BP 126/86; PULSE 102; RESP 20; TEMP 37; O2SAT 100
== END 2024-02-10 17:30 | disposition home or self-care (01) ==
PROVIDERS: Emergency Provider Emergency Medicine; PCP Family Medicine
DX: L03.032 Cellulitis of left toe (principal)
CPT/HCPCS: 36415; 73660; 80053; 85025; 85651; 86140; 99284

== ENCOUNTER → 2024-06-05 08:17 | Outpatient (CLI) | payer OTHER, SELFPAY ==
[2024-06-05 08:43] LABS: Add Manual Diff / Slide Review NO; Basophils Absolute Auto 100 /uL (0-100); Basophils Percent Auto 0.8 % (0-2); Eosinophils Absolute Auto 200 /uL (0-450); Eosinophils Percent Auto 2.3 % (2-4); Hematocrit 44.5 % (41-53); Hemoglobin 14.8 g/dL (13.5-17.5); Lymphocytes Absolute Auto 1800 /uL (1100-4500); Mean Corpuscular HGB Conc 33.2 % (30-36); Mean Corpuscular Hemoglobin 26.2 PG (26-34); Monocytes Absolute Auto 500 /uL (0-900); Monocytes Percent Auto 6.5 % (3-14); Neutrophils Absolute Auto 5100 /uL (1500-7000); Neutrophils Percent Auto 67.4 % (50-75); Platelet Count 242 X10^3/uL (150-400); Red Blood Cell Count 5.64 X10^6/uL (4.5-5.9); Red Cell Distribution Width 14.4 % (11.6-14.8); White Blood Cell Count 7.6 X10^3/uL (4.5-11.0)
[2024-06-05 09:27] LABS: Alanine Aminotransferase 30 IU/L (<50); Albumin Globulin Ratio 1.6 (1.0-2.8); Alkaline Phosphatase 79 U/L (38-126); Aspartate Aminotransferase 27 IU/L (17-59); BUN Creatinine Ratio 34.6 (6-22); Bilirubin Total 0.5 mg/dL (0.2-1.3); Blood Urea Nitrogen 28 mg/dL (9-20); Carbon Dioxide 25 mmol/L (22-32); Chloride 104 mmol/L (98-107); Cholesterol 148 mg/dL (140-199); Estimated Glomerular Filt Rate > 60 mL/min (>60); Globulin 2.5 g/dL (1.7-4.1); Glucose 143 mg/dL (80-110); HDL Cholesterol 35 mg/dL (40-60); HEMOLYSIS < 15 (0-50); LDL Cholesterol Calculated 70 mg/dL (<100); Potassium 3.9 mmol/L (3.4-5.1); Sodium 138 mmol/L (137-145); Total Protein 6.5 g/dL (6.3-8.2); Triglycerides 215 mg/dL (35-150)
[2024-06-05 12:08] LABS: Prostate Specific Antigen Scrn 7.68 ng/mL (0.1-4.0)
[2024-06-05 14:33] LABS: Hemoglobin A1C% w Est Avg Glu 7.1 % (4.0-6.0)
== END ==
PROVIDERS: PCP Family Medicine; Referring Provider Family Medicine; Visit Provider Family Medicine
DX: I10 Essential (primary) hypertension (principal); E11.40 Type 2 diabetes mellitus with diabetic neuropathy, unspecified; E78.1 Pure hyperglyceridemia; E66.01 Morbid (severe) obesity due to excess calories; Z12.5 Encounter for screening for malignant neoplasm of prostate
CPT/HCPCS: 36415; 80053; 80061; 83036; 85025; G0103

== ENCOUNTER → 2024-08-28 15:09 | Outpatient (CLI) | payer OTHER, SELFPAY ==
[2024-08-28 16:16] LABS: Prostate Specific Antigen 6.83 ng/mL (0.10-4.00)
[2024-08-28 16:43] LABS: Creatinine Urine Random 96.62 mg/dL
[2024-08-28 16:50] LABS: Microalbumin Urine Random 1.7 mg/dL (0-1.6)
== END ==
PROVIDERS: PCP Family Medicine; Referring Provider Family Medicine; Visit Provider Family Medicine
DX: I10 Essential (primary) hypertension (principal); E78.1 Pure hyperglyceridemia; E11.40 Type 2 diabetes mellitus with diabetic neuropathy, unspecified; E66.01 Morbid (severe) obesity due to excess calories
CPT/HCPCS: 36415; 82043; 82570; 84153

== ENCOUNTER → 2024-11-29 09:50 | Outpatient (CLI) | payer OTHER, SELFPAY ==
[2024-11-29 11:03] LABS: Hematocrit 46.8 % (41-53); Hemoglobin 15.4 g/dL (13.5-17.5); Mean Corpuscular HGB Conc 32.9 % (30-36); Mean Corpuscular Volume 78.9 fL (80-100); Platelet Count 226 X10^3/uL (150-400); Red Blood Cell Count 5.93 X10^6/uL (4.5-5.9); Red Cell Distribution Width 14.6 % (11.6-14.8); White Blood Cell Count 7.2 X10^3/uL (4.5-11.0)
[2024-11-29 12:05] LABS: HEMOLYSIS < 15 (0-50); Iron 77 ug/dL (49-181)
[2024-11-29 12:07] LABS: Estimated Glomerular Filt Rate > 60 mL/min (>60)
[2024-11-29 12:17] LABS: Percent Iron Saturation 23 % (20-50); Total Iron Binding Capacity 335 ug/dL (261-462); Transferrin 315 mg/dL (206-381)
[2024-11-29 12:42] LABS: Ferritin 68 ng/mL (18-464)
== END ==
PROVIDERS: Urology; PCP Family Medicine; Referring Provider Family Medicine; Visit Provider Family Medicine
DX: R71.8 Other abnormality of red blood cells (principal); E11.40 Type 2 diabetes mellitus with diabetic neuropathy, unspecified; R97.20 Elevated prostate specific antigen [PSA]
CPT/HCPCS: 36415; 82565; 82728; 83036; 83540; 83550; 85027

== ENCOUNTER → 2025-05-27 08:19 | Outpatient (CLI) | payer OTHER, SELFPAY ==
[2025-05-27 08:50] LABS: Hematocrit 44.7 % (41-53); Hemoglobin 15.2 g/dL (13.5-17.5); Mean Corpuscular HGB Conc 33.9 % (30-36); Mean Corpuscular Hemoglobin 27.2 PG (26-34); Mean Corpuscular Volume 80.2 fL (80-100); Platelet Count 201 X10^3/uL (150-400)
[2025-05-27 08:56] LABS: Hemoglobin A1C% w Est Avg Glu 7.1 % (4.0-6.0)
[2025-05-27 08:59] LABS: Alanine Aminotransferase 35 IU/L (<50); Albumin 4.2 g/dL (3.5-5.0); Albumin Globulin Ratio 1.4 (1.0-2.8); Alkaline Phosphatase 95 U/L (38-126); Blood Urea Nitrogen 24 mg/dL (9-20); Calcium 9.4 mg/dL (8.4-10.2); Carbon Dioxide 25 mmol/L (22-32); Chloride 104 mmol/L (98-107); Cholesterol 188 mg/dL (140-199); Estimated Glomerular Filt Rate > 60 mL/min (>60); Globulin 2.9 g/dL (1.7-4.1); Glucose 158 mg/dL (70-99); HDL Cholesterol 40 mg/dL (40-60); HEMOLYSIS 22 (0-50); Potassium 4.3 mmol/L (3.4-5.1); Sodium 137 mmol/L (137-145); Total Protein 7.1 g/dL (6.3-8.2); Triglycerides 393 mg/dL (35-150)
[2025-05-27 09:34] LABS: Microalbumi Creatinin Ratio Ur 41.0 ug/mg CR (<30)
== END ==
PROVIDERS: PCP Family Medicine; Referring Provider Family Medicine; Visit Provider Family Medicine
DX: E11.40 Type 2 diabetes mellitus with diabetic neuropathy, unspecified (principal); E11.29 Type 2 diabetes mellitus with other diabetic kidney complication; R80.9 Proteinuria, unspecified
CPT/HCPCS: 36415; 80053; 80061; 82043; 82570; 83036; 85027

== ENCOUNTER → 2025-06-12 15:16 | Outpatient (CLI) | payer OTHER, SELFPAY ==
--- NOTE | 2025-06-12 15:16 | DI.CT.S_ITS ---
PROCEDURE: CT LUNG LOW DOSE SCREENING INDICATIONS: 35 year smoking hx TECHNIQUE: Noncontrast 2.0-2.5 mm thick sections acquired from the pulmonary apices to the posterior costophrenic angles. 7 mm thick axial MIP, and 5 mm coronal and sagittal reformats were then acquired. For radiation dose reduction, the following was used: automated exposure control, adjustment of mA and/or kV according to patient size. COMPARISON: None. FINDINGS: Image quality: Diagnostic. Lower Neck: No enlarged lymph nodes. Thyroid: No thyroid nodules which require sonographic follow up, per consensus guidelines. Axillae: No enlarged lymph nodes. Chest Wall: Unremarkable. Bones: Unremarkable. Lungs and Pleura: No pneumothorax or pleural effusions. No consolidation or suspicious nodules. Note is made of 4 separate small and punctate calcified granulomas within the right lung, seen on series 3, image 130, image 168, image 174 and image 123. Heart: Heart size is normal. No pericardial effusion. Thoracic Vessels: The aorta and pulmonary arteries demonstrate normal size. Mediastinum and Erin: No enlarged lymph nodes. Esophagus: No wall thickening. No hiatal hernia. Upper Abdomen: Visualized upper abdomen solid organs and bowel loops appear normal. IMPRESSION: No suspicious pulmonary nodules. Note is made of evidence of old granulomatous disease given the presence of 4 separate punctate/small calcified granulomas within the right lung. LUNG-RADS 2; continued annual screening, if eligible. Clinically Significant Non-pulmonary Findings: None. Dictated by: Robin Cooper M.D. on 06/12/2025 at 16:49 Approved by: Robin Cooper M.D. on 06/12/2025 at 16:53
== END ==
LOC: CT 15:16
PROVIDERS: PCP Family Medicine; Referring Provider Family Medicine; Visit Provider Family Medicine
DX: Z12.2 Encounter for screening for malignant neoplasm of respiratory organs (principal); Z87.891 Personal history of nicotine dependence
CPT/HCPCS: 71271

== ENCOUNTER → 2025-10-14 09:22 | Outpatient (CLI) | payer OTHER, SELFPAY ==
[2025-10-14 10:47] LABS: Prostate Specific Antigen 1.37 ng/mL (0.10-4.00)
== END ==
PROVIDERS: PCP Family Medicine; Referring Provider Urology; Visit Provider Urology
DX: C61 Malignant neoplasm of prostate (principal); N40.1 Benign prostatic hyperplasia with lower urinary tract symptoms
CPT/HCPCS: 36415; 84153